=== PATIENT | female | born 1955 | race Native Hawaiian/Other Pacific Islander ===

== ENCOUNTER 2018-11-09 08:04 | Outpatient (CLI) | payer BC | END 2018-11-09 20:28 | disposition home or self-care (01) | LOC: MAMMO 08:04 | DX: Z12.31 Encounter for screening mammogram for malignant neoplasm of breast (principal) ==

== ENCOUNTER 2020-04-28 09:06 | Outpatient (CLI) | payer BC | END 2020-04-28 23:39 | disposition home or self-care (01) | LOC: MAMMO 09:06 | DX: Z12.31 Encounter for screening mammogram for malignant neoplasm of breast (principal) ==

== ENCOUNTER 2021-05-28 09:30 | Outpatient (CLI) | payer BC | END 2021-05-28 18:58 | disposition home or self-care (01) | LOC: MAMMO 09:30 | PROVIDERS: ATTEND Obstetrics & Gynecology | DX: Z12.31 Encounter for screening mammogram for malignant neoplasm of breast (principal) ==

== ENCOUNTER 2022-06-29 08:20 | Outpatient (CLI) | payer BC | END 2022-06-29 19:35 | disposition home or self-care (01) | LOC: MRI 08:20 | PROVIDERS: ATTEND Physician Assistant | DX: M54.50 Low back pain, unspecified (principal); M54.16 Radiculopathy, lumbar region ==